=== PATIENT | male | born 1945 | race Two or more races ===

== ENCOUNTER 2021-06-30 20:54 | Inpatient (IN) | payer MEDICARE, OTHER ==
[~2021-06-30] VITALS: Ht 170.2 cm; Wt 74.8 kg
[2021-06-30 21:56] LABS: HEMATOCRIT 40.7 % (36.7-47.1); MEAN CORPUSCULAR HEMOGLOBIN 29.9 uug (23.8-33.4); MEAN CORPUSCULAR VOLUME 87.7 fL (73.0-96.2); PLATELET COUNT (AUTO) 256 K/uL (152-348)
[2021-06-30 22:00] LABS: CARBON DIOXIDE 27 mmol/L (21-32); CHLORIDE 102 mmol/L (98-107); CREATININE 1.5 mg/dL (0.6-1.3); GLUCOSE 97 mg/dL (74-106); POTASSIUM 3.7 mmol/L (3.5-5.1); UREA NITROGEN, BLOOD 19 mg/dL (7-18)
[2021-06-30 22:06] LABS: ALANINE AMINOTRANSFERASE 25 U/L (16-63); ALKALINE PHOSPHATASE 69 U/L (50-136); ASPARTATE AMINOTRANSFERASE 22 U/L (15-37); BILIRUBIN,TOTAL 0.6 mg/dL (0.2-1.0); CREATINE KINASE, TOTAL 255 U/L (39-308); MAGNESIUM 1.7 mg/dL (1.8-2.4); TOTAL PROTEIN, SERUM 8.1 g/dL (6.4-8.2)
[2021-06-30] MEDS: MAGNESIUM SULFATE/D5W 100 ML IV SCH (23:06)
[2021-06-30] MEDS ORDERED: MAGNESIUM SULFATE/D5W 100 ML ONE (23:07)
[2021-06-30] MEDS ORDERED: TAMS-3 PO (23:09)
[2021-06-30] MEDS ORDERED: AMLO10TA59 PO (23:09)
[2021-06-30] MEDS ORDERED: LISI20TA30 PO (23:09)
[2021-06-30] MEDS ORDERED: ATOR20TA PO (23:09)
[2021-06-30] MEDS ORDERED: LABE100T5 PO (23:09)
[2021-06-30] MEDS ORDERED: FINA5TAB11 PO (23:09)
[2021-06-30] MEDS ORDERED: LEVO50TA8 PO (23:09)
[2021-07-01] MEDS ORDERED: MAGNESIUM SULFATE/D5W 0 ML ONE (00:13)
[2021-07-01] MEDS: MAGNESIUM SULFATE/D5W 100 ML IV SCH ×2 (00:16→01:05)
[2021-07-01 00:45] LABS: *BILIRUBIN,URIN NEGATIVE (NEGATIVE); *BLOOD, URINE 1+ (NEGATIVE); *CLARITY,URINE SLIGHTLY CLOUDY (CLEAR); *COLOR,URINE YELLOW (YELLOW); *KETONES,URINE NEGATIVE (NEGATIVE); LEUKOCYTE ESTERASE ,URINE 1+ (NEGATIVE); NITRITE, URINE POSITIVE (NEGATIVE); UGLUCOSE NEGATIVE (NEGATIVE)
[2021-07-01 00:54] LABS: BACTERIA,URINE MODERATE /HPF (NONE SEEN)
[2021-07-01 00:55] LABS: SQUAMOUS EPITHELIAL CELL,UR FEW /HPF (NONE SEEN)
[2021-07-01] MEDS ORDERED: MAGNESIUM SULFATE/D5W 100 ML ONE (01:10)
[2021-07-01] MEDS ORDERED: CEFTRIAXONE 1 G in IV DEXTROSE 5% 50 ML IV ONE (01:15)
[2021-07-01] MEDS ORDERED: Z GUARD REMEDY PASTE 57 GM TUBE TOP PRN (02:00)
[2021-07-01] MEDS ORDERED: CEFTRIAXONE 1 G in IV DEXTROSE 5% 50 ML IV SCH (02:00)
[2021-07-01] MEDS ORDERED: MAGNESIUM HYDROXIDE 30 ML LIQUID UDC PO PRN (02:00)
[2021-07-01] MEDS ORDERED: ONDANSETRON 4 MG/2 ML VIAL IV PRN (02:00)
[2021-07-01] MEDS: PANTOPRAZOLE SODIUM 40 MG TABLET.DR PO SCH (07:00)
[2021-07-01] MEDS ORDERED: PANTOPRAZOLE SODIUM 40 MG TABLET.DR PO ONE ×2 (07:07→07:46)
[2021-07-01] MEDS: HEPARIN SODIUM,PORCINE 5,000 UNITS/ML VIAL SQ SCH ×2 (10:15→20:50)
[2021-07-01] MEDS ORDERED: HEPARIN SODIUM,PORCINE 5,000 UNITS/ML VIAL ONE ×2 (10:26→20:54)
[2021-07-01] MEDS: ACETAMINOPHEN 325 MG TABLET PO PRN (16:56)
[2021-07-01] MEDS ORDERED: ACETAMINOPHEN 325 MG TABLET ONE (17:06)
[2021-07-01] MEDS: LABETALOL HCL 100 MG TABLET PO SCH (17:26)
[2021-07-01] MEDS: TAMSULOSIN HCL 0.4 MG CAP.SR.24H PO SCH (20:48)
[2021-07-01] MEDS: LISINOPRIL 20 MG TABLET PO SCH (20:49)
[2021-07-01] MEDS: ATORVASTATIN 20 MG TABLET PO SCH (20:49)
[2021-07-01] MEDS ORDERED: LISINOPRIL 10 MG TABLET ONE (20:54)
[2021-07-01] MEDS ORDERED: TAMSULOSIN HCL 0.4 MG CAP.SR.24H ONE (20:54)
[2021-07-01] MEDS ORDERED: ATORVASTATIN 40 MG TABLET ONE (20:54)
[2021-07-01 23:51] VITALS: BP 125/72
[2021-07-02] MEDS: IV NS 1000 ML 1,000 ML IV PRN ×2 (01:42→15:16)
[2021-07-02] MEDS ORDERED: CEFTRIAXONE 1 G VIAL ONE (02:10)
[2021-07-02] MEDS: CEFTRIAXONE 1 G in IV DEXTROSE 5% 50 ML IV SCH (02:12)
[2021-07-02 05:01] VITALS: BP 127/74
[2021-07-02 06:09] LABS: HEMATOCRIT 40.2 % (36.7-47.1); MEAN CORPUSCULAR HEMOGLOBIN 30.3 uug (23.8-33.4); PLATELET COUNT (AUTO) 223 K/uL (152-348)
[2021-07-02] MEDS: PANTOPRAZOLE SODIUM 40 MG TABLET.DR PO SCH (06:27)
[2021-07-02] MEDS: LEVOTHYROXINE SODIUM 50 MCG TABLET PO SCH (06:27)
[2021-07-02 06:32] LABS: IRON, SERUM 30 ug/dL (50-175)
[2021-07-02] MEDS: ACETAMINOPHEN 325 MG TABLET PO PRN (06:33)
[2021-07-02 06:55] LABS: ALANINE AMINOTRANSFERASE 29 U/L (16-63); ALKALINE PHOSPHATASE 64 U/L (50-136); ASPARTATE AMINOTRANSFERASE 26 U/L (15-37); BILIRUBIN,TOTAL 0.4 mg/dL (0.2-1.0); CARBON DIOXIDE 25 mmol/L (21-32); CHLORIDE 100 mmol/L (98-107); CREATININE 1.7 mg/dL (0.6-1.3); GLUCOSE 101 mg/dL (74-106); MAGNESIUM 2.5 mg/dL (1.8-2.4); POTASSIUM 3.5 mmol/L (3.5-5.1); TOTAL PROTEIN, SERUM 7.6 g/dL (6.4-8.2); UREA NITROGEN, BLOOD 20 mg/dL (7-18)
[2021-07-02] MEDS: LABETALOL HCL 100 MG TABLET PO SCH ×2 (09:00→17:00)
[2021-07-02] MEDS: HEPARIN SODIUM,PORCINE 5,000 UNITS/ML VIAL SQ SCH ×2 (10:15→21:17)
[2021-07-02] MEDS: FINASTERIDE 5 MG TABLET PO SCH (10:19)
[2021-07-02] MEDS: AMLODIPINE 10 MG TABLET PO SCH (10:20)
[2021-07-02] MEDS: LISINOPRIL 20 MG TABLET PO SCH ×2 (10:20→21:16)
[2021-07-02 11:17] VITALS: BP 115/67
[2021-07-02 15:18] VITALS: BP 110/72
[2021-07-02 20:04] VITALS: BP 151/76
[2021-07-02] MEDS: TAMSULOSIN HCL 0.4 MG CAP.SR.24H PO SCH (21:16)
[2021-07-02] MEDS: ATORVASTATIN 20 MG TABLET PO SCH (21:16)
[2021-07-03] MEDS: CEFTRIAXONE 1 G in IV DEXTROSE 5% 50 ML IV SCH (01:37)
[2021-07-03] MEDS: IV NS 1000 ML 1,000 ML IV PRN ×2 (02:56→16:29)
[2021-07-03 04:00] VITALS: BP 159/89
[2021-07-03 06:21] LABS: HEMATOCRIT 39.9 % (36.7-47.1); MEAN CORPUSCULAR HEMOGLOBIN 30.1 uug (23.8-33.4); MEAN CORPUSCULAR VOLUME 88.6 fL (73.0-96.2); PLATELET COUNT (AUTO) 235 K/uL (152-348)
[2021-07-03] MEDS: PANTOPRAZOLE SODIUM 40 MG TABLET.DR PO SCH (06:25)
[2021-07-03] MEDS: LEVOTHYROXINE SODIUM 50 MCG TABLET PO SCH (06:25)
[2021-07-03 06:33] LABS: CREATININE 1.2 mg/dL (0.6-1.3); MAGNESIUM 2.1 mg/dL (1.8-2.4); POTASSIUM 3.6 mmol/L (3.5-5.1)
[2021-07-03] MEDS: AMLODIPINE 10 MG TABLET PO SCH (08:06)
[2021-07-03] MEDS: FINASTERIDE 5 MG TABLET PO SCH (08:07)
[2021-07-03] MEDS: LABETALOL HCL 100 MG TABLET PO SCH ×2 (08:07→16:27)
[2021-07-03] MEDS: LISINOPRIL 20 MG TABLET PO SCH ×2 (08:07→20:22)
[2021-07-03] MEDS: HEPARIN SODIUM,PORCINE 5,000 UNITS/ML VIAL SQ SCH ×2 (08:09→20:24)
[2021-07-03 11:00] VITALS: BP 143/75
[2021-07-03 16:00] VITALS: BP 162/84
[2021-07-03 20:00] VITALS: BP 128/67
[2021-07-03] MEDS: ATORVASTATIN 20 MG TABLET PO SCH (20:28)
[2021-07-03] MEDS: TAMSULOSIN HCL 0.4 MG CAP.SR.24H PO SCH (20:28)
[2021-07-04] MEDS: CEFTRIAXONE 1 G in IV DEXTROSE 5% 50 ML IV SCH (01:22)
[2021-07-04] MEDS: IV NS 1000 ML 1,000 ML IV PRN (01:31)
[2021-07-04 04:00] VITALS: BP 123/79
[2021-07-04] MEDS: LEVOTHYROXINE SODIUM 50 MCG TABLET PO SCH (06:00)
[2021-07-04] MEDS: PANTOPRAZOLE SODIUM 40 MG TABLET.DR PO SCH (06:01)
[2021-07-04 06:46] LABS: CARBON DIOXIDE 23 mmol/L (21-32); UREA NITROGEN, BLOOD 14 mg/dL (7-18)
[2021-07-04 08:00] VITALS: BP 142/80
[2021-07-04 08:26] LABS: MEAN CORPUSCULAR HEMOGLOBIN 30.3 uug (23.8-33.4); MEAN CORPUSCULAR VOLUME 88.4 fL (73.0-96.2); PLATELET COUNT (AUTO) 257 K/uL (152-348)
[2021-07-04] MEDS: LISINOPRIL 20 MG TABLET PO SCH (08:28)
[2021-07-04] MEDS: FINASTERIDE 5 MG TABLET PO SCH (08:28)
[2021-07-04] MEDS: AMLODIPINE 10 MG TABLET PO SCH (08:28)
[2021-07-04] MEDS: LABETALOL HCL 100 MG TABLET PO SCH (08:28)
[2021-07-04] MEDS: HEPARIN SODIUM,PORCINE 5,000 UNITS/ML VIAL SQ SCH (08:29)
[2021-07-04 08:38] LABS: CHLORIDE 107 mmol/L (98-107); CREATININE 1.2 mg/dL (0.6-1.3); GLUCOSE 100 mg/dL (74-106); POTASSIUM 3.8 mmol/L (3.5-5.1)
[2021-07-04] MEDS ORDERED: SULF1TAB48 PO (11:46)
[2021-07-04] MEDS ORDERED: HYDR-3972 PO (11:46)
[2021-07-04 12:00] VITALS: BP 154/84
[2021-07-04 16:03] VITALS: BP 126/78
[2021-07-04] MEDS ORDERED: SULFAMETH/TRIMETH 800/160 MG TABLET PO SCH (21:00)
== END 2021-07-04 17:18 | disposition home or self-care (01) | DRG 690 ==
LOC: ER 20:56 → TRANSITION 07-01 01:30 → MEDSURG3 07-01 22:22
PROVIDERS: ADMIT Hospitalist; ATTEND Nurse Practitioner Family
DX: N13.6 Pyonephrosis (principal); N17.9 Acute kidney failure, unspecified; N40.1 Benign prostatic hyperplasia with lower urinary tract symptoms; R33.8 Other retention of urine; E83.42 Hypomagnesemia; B96.89 Other specified bacterial agents as the cause of diseases classified elsewhere; B96.20 Unspecified Escherichia coli [E. coli] as the cause of diseases classified elsewhere; I10 Essential (primary) hypertension; E78.5 Hyperlipidemia, unspecified; E03.9 Hypothyroidism, unspecified; Z87.442 Personal history of urinary calculi; Z79.899 Other long term (current) drug therapy; Z79.890 Hormone replacement therapy
CPT/HCPCS: 36415; 70030-TC; 71045; 74018; 83550; 83735; 84100; 85025; 85651; 87040; 87077; 87086; 93005; A4663; G0378; J0696; J1644; J3475; J7030; J7060